=== PATIENT | female | born 1995 | race Hispanic/Latino ===

== ENCOUNTER 2018-03-08 14:23 | Emergency (ER) | payer SELFPAY ==
[~2018-03-08] VITALS: Ht 165.1 cm; Wt 82.6 kg
[2018-03-08] MEDS ORDERED: MORPHINE SULFATE 2 MG/ML SYR IV STA (15:08)
[2018-03-08] MEDS ORDERED: IBUPROFEN400 MG PO (16:50)
[2018-03-08] MEDS ORDERED: TYLENOL WITH C1 EACH PO (16:50)
== END 2018-03-08 16:58 | disposition home or self-care (01) ==
LOC: FSED 14:23
DX: L05.01 Pilonidal cyst with abscess (principal)
CPT/HCPCS: 10081; 99284; J2270